=== PATIENT | female | born 1935 | race Caucasian/White ===

== ENCOUNTER → 2017-04-21 | Outpatient (CLI) | payer MEDICARE, OTHER ==
[~2017-04-21] MED LIST: IOPAMIDOL 76% 75 ML INFUS BTL 75 ML ONE; LEVO88TA43 PO; NS 0.9% 20 ML SDV 40 ML ONE
--- NOTE | 2017-04-21 13:23 | RADIOLOGY IMAGING REPORT ---
FACILITY: [facility] - [place] PATIENT NAME: Janelle Atkinson : 1935 MR: [id number] V: [id number] EXAM DATE: ORDERING PHYSICIAN: MANDY DUNLAP TECHNOLOGIST: Location: [facility] - [place] Patient: Janelle Atkinson : 1935 Visit/Account:[id number] Date of Sevice: 04/21/2017 CT ABDOMEN WITH AND WITHOUT CONTRAST CLINICAL INFORMATION: Adrenal adenoma follow-up TECHNIQUE: Axial CT images were obtained through the abdomen before and after injection of nonionic iodinated intravenous contrast. Reformatted coronal and sagittal images were also obtained. Pre cont rast and delayed images were obtained. Dose Lowering Technique One of the following dose optimization techniques was utilized in the performance of this exam: Autom ated exposure control; adjustment of the mA and/or kV according to the patient's size; or use of an i terative reconstruction technique. Specific details can be referenced in the facility's radiology C T exam operational policy. CONTRAST: 75ml of IV Isovue-370 contrast. COMPARISON: CT abdomen pelvis October 30, 2015. FINDINGS: Lower lung varner: Small amount of chronic linear stranding in the lung bases. Liver: There is a 1.7 cm enhancing process in the anterior right lobe the liver on the venous phase w hich is more conspicuous when compared the prior study likely related to the difference in timing of the contrast injection. Biliary: Cholelithiasis although no evidence for ductal dilatation Pancreas: Normal appearance. Spleen: Normal appearance. Adrenal glands: There is 1.6 cm right adrenal mass appears unchanged when compared to the most recent study. The degree of contrast washout is consistent with an adenoma. There is a 9 mm hypoattenuati ng nodule in the left adrenal gland that has remained stable although is too small to characterize by CT. Kidneys / retroperitoneum: Renal cysts are identified Bowel / peritoneum / mesenteries: There is a large hiatal hernia Vessels: Extensive vascular calcifications again noted atherosclerotic calcification seen throughout a nonaneurysmal abdominal aorta and branches. Musculoskeletal / Body wall: Moderate spondylotic changes of the thoracolumbar spine Lymph node assessment: No pathologic adenopathy identified. IMPRESSION: 1. Bilateral adrenal masses have remained stable. The left adrenal mass is too small to characteriz e by CT however the right adrenal mass contrast characteristics are consistent with a benign adenoma There is a 1.7 cm enhancing process in the anterior right lobe the liver on the venous phase which is more conspicuous when compared to the prior study likely related to difference in timing of contrast injection. Statistically this likely represents a hemangioma and is faintly seen on the prior CT fr om April 22, 2010 Cholelithiasis although no evidence of biliary ductal dilatation Large hiatal hernia 2. 3. Report Dictated By: Francheska Lea MD at 04/21/2017 11:37 AM Report E-Signed By: Francheska Lea MD at 04/21/2017 1:18 PM WSN:[id number]
== END ==
LOC: CT 04-14 00:49
PROVIDERS: ATTEND Nurse Practitioner Family
DX: D35.00 Benign neoplasm of unspecified adrenal gland (principal); K44.9 Diaphragmatic hernia without obstruction or gangrene; K80.20 Calculus of gallbladder without cholecystitis without obstruction; D18.03 Hemangioma of intra-abdominal structures
CPT/HCPCS: 74170; J7050; Q9967

== ENCOUNTER 2017-05-12 09:15 | Outpatient (RCR) | payer MEDICARE, OTHER ==
--- NOTE | 2017-05-05 10:33 | PT INITIAL EVALUATION ---
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 She would like to sleep without L shoulder pain and carry heavy items without shoulder pain. She's right-handed. Quick DASH 11% impairment. Pain location is L shoulder and described as ache at night. Pain scale is on a ten point pain scale. Pain is worse with L side lie position and better with rest. REHAB PROBLEM LIST: Increased Pain, Decreased AROM, Decreased Strength, Decreased Sleep and lifting Function, Decreased Scapular Mobility PREVIOUS MEDICAL HISTORY: Pacemaker OCCUPATION: [employer], [employer]. OBJECTIVE: Posture: B protracted shoulders with glenoids anterior in the socket. ROM: AROM B shoulders WNL, PROM B shoulder full in all directions. Strength: R ER 4-/5, L 4+/5, IR, biceps B 4+/5, LT B 3/5. Special Tests: Negative drop arm and inferior drawer B. Mobility: Tight scapulothoracic joints. Gait: Mild reverse scapulohumeral rhythm with abduction. ASSESSMENT: Janelle Atkinson presents with muscle imbalance, joint tightness, postural changes, night pain, good ROM with B rotator cuff tears. She's started on a muscle balancing HEP today and did well with it. Short Term Goals/Patient's Goals 4 weeks: Janelle sleeps without L shoulder pain. 8 weeks: Janelle carries 40 lb. boxes without shoulder pain. PLAN: Patient to be seen for Manual Therapy, Strengthening/condition, Ice/Heat , Stretching, Electrical Stim, Home Exercise Program 1x/Week for 2 Months Thank you for this referral. If you have any questions, comments, or concerns about this report or plan, please contact me at . [facility]
[~2017-05-12 09:15] MED LIST changes: -IOPAMIDOL 76% 75 ML INFUS BTL 75 ML ONE; -NS 0.9% 20 ML SDV 40 ML ONE
--- NOTE | 2017-06-05 11:17 | PT PLAN OF CARE ---
Physician: Dr. Morgan Jin Patient is being seen: twice Therapist: Shania Mitchell, PT Medical Diagnosis: M75.121 Chronic Rotator Cuff Tear w/ no known mechanism, M75.122 Treatment Diagnosis: Same Date of Onset: 10/28/16 Date of Initial Evaluation: 05/05/17 Date patient was last seen: 05/12/17 Number of treatments: 2 Number of cancellations/No shows: 3 INTERVENTIONS: Manual Therapy, Strengthening/condition, Stretching, Home Exercise Program GOALS/PATIENT'S GOAL: 4 weeks: Janelle sleeps without L shoulder pain. unknown 8 weeks: Janelle carries 40 lb. boxes without shoulder pain. unknown Patient Compliance: Poor Prognosis: Excellent Reasons for discontinuing therapy: S: Janelle no showed her last three appointments and hasn't returned my calls. A/P: Janelle's discharged herself from therapy. I'll DC PT. Thank you. KEVIN
== END 2017-05-12 18:00 | disposition home or self-care (01) ==
LOC: PT 09:15
PROVIDERS: ATTEND Orthopaedic Surgery Pediatric Orthopaedic Surgery
DX: M75.121 Complete rotator cuff tear or rupture of right shoulder, not specified as traumatic (principal); M75.122 Complete rotator cuff tear or rupture of left shoulder, not specified as traumatic; X50.0XXA Overexertion from strenuous movement or load, initial encounter
CPT/HCPCS: 97161

== ENCOUNTER → 2017-07-06 | Outpatient (CLI) | payer MEDICARE, OTHER ==
--- NOTE | 2017-07-06 10:23 | RADIOLOGY IMAGING REPORT ---
FACILITY: [facility] - [place] PATIENT NAME: Janelle Atkinson : 1935 MR: [id number] V: [id number] EXAM DATE: ORDERING PHYSICIAN: MAMI GARCIA TECHNOLOGIST: Location: [facility] Patient: Janelle Atkinson : 1935 Visit/Account:[id number] Date of Sevice: 07/06/2017 Technique: CHEST PA AND LAT HISTORY: Shortness of breath Comparison studies: None FINDINGS: Hazy bibasilar opacities are noted. Overall, there is pulmonary hyperexpansion the backgro und setting of increased interstitial lung markings. Central peribronchial thickening is noted. Sma ll right and trace left pleural effusions are noted. Left chest wall pacer and leads are identified. The cardiac silhouette is unremarkable. IMPRESSION: 1. Hazy bibasilar airspace opacities in the back and setting of a small right and trace left pleural effusion. Differential diagnosis includes airspace process such as pneumonia or passive atelectasis . 2. Chronic lung changes as characterized above. Report Dictated By: Gary Bermudez DO at 07/06/2017 10:15 AM Report E-Signed By: Gary Bermudez DO at 07/06/2017 10:19 AM WSN:[id number]
== END ==
LOC: RAD 09:34
PROVIDERS: ATTEND Nurse Practitioner Family
DX: R91.8 Other nonspecific abnormal finding of lung field (principal)
CPT/HCPCS: 71046

== ENCOUNTER 2017-09-23 15:40 | Emergency (ER) | payer OTHER, MEDICARE ==
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
[2017-09-23 16:08] VITALS: BP 105/52
== END 2017-09-23 16:13 | disposition home or self-care (01) ==
LOC: ER 15:51
DX: Z04.1 Encounter for examination and observation following transport accident (principal)
CPT/HCPCS: 99281

== ENCOUNTER → 2017-11-24 | Outpatient (CLI) | payer MEDICARE, OTHER ==
[2017-11-24 08:41] LABS: PLATELET COUNT, AUTOMATED 223 K/uL (150-450)
== END ==
LOC: LAB 08:06
PROVIDERS: ATTEND Nurse Practitioner Family
DX: I50.9 Heart failure, unspecified (principal)
CPT/HCPCS: 36415; 82040; 82247; 82310; 82374; 82435; 82565; 82947; 83880; 84075; 84132; 84155; 84295; 84450; 84460; 84520; 85025

== ENCOUNTER → 2018-01-22 | Outpatient (CLI) | payer MEDICARE, OTHER | LOC: LAB 11:21 | PROVIDERS: ATTEND Internal Medicine Cardiovascular Disease | DX: I50.22 Chronic systolic (congestive) heart failure (principal) | CPT/HCPCS: 36415; 82310; 82374; 82435; 82565; 82947; 83880; 84132; 84295; 84520 ==

== ENCOUNTER → 2018-04-21 | Outpatient (CLI) | payer MEDICARE, OTHER | LOC: LAB 10:39 | PROVIDERS: ATTEND Internal Medicine Cardiovascular Disease | DX: I42.0 Dilated cardiomyopathy (principal); I50.22 Chronic systolic (congestive) heart failure | CPT/HCPCS: 36415; 82040; 82247; 82310; 82374; 82435; 82565; 82947; 83880; 84075; 84132; 84155; 84295; 84443; 84450; 84460; 84520; 85027 ==

== ENCOUNTER → 2018-08-19 | Outpatient (CLI) | payer MEDICARE, OTHER | LOC: RESP 19:55 | PROVIDERS: ATTEND Nurse Practitioner Family | DX: G47.33 Obstructive sleep apnea (adult) (pediatric) (principal); G47.61 Periodic limb movement disorder; G47.36 Sleep related hypoventilation in conditions classified elsewhere ==

== ENCOUNTER → 2018-08-24 | Outpatient (CLI) | payer MEDICARE, OTHER | LOC: LAB 09:50 | PROVIDERS: ATTEND Internal Medicine Cardiovascular Disease | DX: I42.0 Dilated cardiomyopathy (principal); I50.22 Chronic systolic (congestive) heart failure; Z91.19 Patient's noncompliance with other medical treatment and regimen | CPT/HCPCS: 36415; 82310; 82374; 82435; 82565; 82947; 84132; 84295; 84520 ==

== ENCOUNTER → 2018-08-27 | Outpatient (CLI) | payer MEDICARE, OTHER | LOC: LAB 11:18 | PROVIDERS: ATTEND Internal Medicine Cardiovascular Disease | DX: I50.22 Chronic systolic (congestive) heart failure (principal) | CPT/HCPCS: 36415; 83880 ==